=== PATIENT | male | born 1940 | race Caucasian/White ===

== ENCOUNTER 2020-04-07 16:07 | Inpatient (IN) | payer OTHER ==
[~2020-04-07] VITALS: Ht 182.9 cm; Wt 83.9 kg
--- NOTE | ~2020-04-07 | CON ---
[address] [address] CONSULTATION Name: SHANONNOHEMY Jessica Room: [address] IN M.R.#: [id number] Admission: 04/07/20 Attend Phys: Srinivas Bahena MD Discharge: Date of : 44 Report #: [id number] THIS REPORT FOR: //name// cc: Jose Antonio Short MD, Gregory MD ~ THIS REPORT FOR: //name// CC: Jose Antonio Bahena DATE OF SERVICE: 04/10/2020 HISTORY OF PRESENT ILLNESS: This is a 80-year-old male patient who was evaluated by me for memory disturbances. I talked to Dr. Collado and also talked to the nurses looking after this patient. This patient is admitted with COVID-19. He says that for 1-2 years, he is having some memory problems that are relatively mild. He was wondering whether he got dementia. Then, he got this COVID infection for which he was admitted to the hospital. This patient does have some disturbances in his blood and the patient's AST and ALT is high. His TSH is low. He did have a sed rate, but that was about 6 years ago and that was 0. REVIEW OF SYSTEMS: His 14-point review of system was carried out. He basically complained of some memory problem, which he says is longstanding. He says he may have become somewhat worse with it, but he is not markedly worse. There is some question of some speech difficulty at one time, but that is not certain. is not here, but she has confirmed that history to the nurses and I will try to reach her. According to nurses, she is emotional today because of some family dynamic, so I will probably call her tomorrow. That was his relevant 14-point review of system. PAST MEDICAL HISTORY: Positive for gallbladder. FAMILY HISTORY: Unremarkable. SOCIAL HISTORY: He does not smoke or drink alcohol. PHYSICAL EXAMINATION: Indicates: GENERAL: He is alert. He is responsive. He is oriented. NEUROLOGIC: He can tell me the name of the president and tell me the name of the hospital he is in. His cranial nerve examinations appear unremarkable. His neuromuscular examinations also appeared to be unremarkable. His reflexes are symmetrical. There is no cerebellar sign. I could not look at the patient's fundus. CARDIAC AND RESPIRATORY: Examinations appear noncontributory. He does have pneumonia, but does not appear to be markedly short of breath. His pulses are [facility] [address] [place] [address] CONSULTATION Name: NOHEMY CLAUDIO Jessica Room: [address]#: [id number] Admission: 04/07/20 Attend Phys: Srinivas Bahena MD Discharge: Date of : 44 Report #: [id number] palpable. VITAL SIGNS: His blood pressure is 110/55, his respiration is 16, pulse is 62, and temperature is 97.3. LABORATORY DATA: His white count is 4.5. He did have a CT scan during this admission and that does not show any acute problem. He does have some mild atrophy. IMPRESSION: It would appear that the patient most likely has cognitive decline, which is age-related. There was some question of speech difficulty and because of that I will get a carotid Doppler done. He denies that. It is just from the record and I suspect most likely he had encephalopathy, but even from the record, I am not certain about speech difficulty. It looks like he loses the train of thought. If that is okay, I will suggest checking a B12 and he should make an appointment after he recovers from the present episode and then we can do further workup on him as an outpatient. Thank you very much for this referral. By: 1756 Pankaj Clark MD /nt
[~2020-04-07 16:07] MED LIST: CIPROFLOXACIN500 M3; DARVOCET-N 1001 EACH PO; ERYTHROMYCIN250 MG; FLEXERIL PO; HYDROCODON-ACE1 EACH; HYDROCODON-ACE1 EACH PO; IRON325 PO; NOHOMEMEDICATIONS; NORCO 5-325 TA1 EACH PO; NORFLEX100 MG PO; PANCRELIPASE 51 EACH; PERCOCET 5-3251 EACH PO; PROTONIX40 M2 PO; REGLAN 10 MG TA10 MG; SODIUM CHLORIDE; TAMSULOSIN HCL0.4 M1 PO; TRANSDERM-SCO1 PATC1; VITAMIN D2000 UNIT PO; ZOFRAN4 MG
[2020-04-07 16:11] VITALS: BP 122/61
[2020-04-07] MEDS ORDERED: OMEPRAZOLE40 MG PO (16:15)
[2020-04-07] MEDS ORDERED: FLOMAX0.4 MG PO (16:15)
[2020-04-07] MEDS ORDERED: CIPRO500 M1 PO (16:16)
[2020-04-07 17:00] LABS: BE -2.8 mmol/L (-2 to +3); PCO2 22.5 mmHg (35.0-45.0); PO2 78.8 mmHg (75.0-100.0); pH 7.522 (7.340-7.450)
[2020-04-07 17:25] LABS: HEMATOCRIT 39.3 % (42.0-52.0); HEMOGLOBIN 13.8 gm/dL (14.0-18.0); MCH 31.4 pg (26.0-34.0); MCHC 35.2 g/dL (28.0-37.0); MCV 89.3 fL (80.0-100.0); MPV 10.4 fl. (7.2-11.1); NUCLEATED RBCS 0 /100WBC; RDW-CV 13.3 % (10.5-14.5); WBC 5.4 thou/uL (4.0-11.0)
[2020-04-07 17:33] LABS: CALCIUM 7.7 mg/dL (8.5-10.1); CREATININE 1.4 mg/dL (0.6-1.3); POTASSIUM 3.6 mmol/L (3.5-5.1)
[2020-04-07 17:35] LABS: APTT 27.1 Seconds (25.0-31.3); INR 1.1; PROTIME 10.9 Seconds (9.20-11.50)
[2020-04-07 17:37] LABS: ALBUMIN 2.9 g/dL (3.4-5.0); MAGNESIUM 1.9 mg/dL (1.8-2.4); TOTAL PROTEIN 5.9 g/dL (6.4-8.2)
[2020-04-07 17:47] LABS: ABSOLUTE BASOPHILS 0.1 thou/uL (0.0-0.2); ABSOLUTE LYMPHOCYTES 0.9 thou/uL (0.8-5.3); ABSOLUTE MONOCYTES 0.4 thou/uL (0.0-1.2); ABSOLUTE NEUTROPHILS 4.1 thou/uL (1.6-8.1); ATYPICAL LYMPHS 4 %
[2020-04-07 17:48] LABS: GIANT PLATELETS FEW; PLATELET ESTIMATE ADEQUATE
[2020-04-07 17:49] LABS: PLATELET COUNT* 260 thou/uL (150-400)
[2020-04-07 22:20] VITALS: BP 118/53
[2020-04-07] MEDS ORDERED: TYLENOL325 MG PO (23:04)
[2020-04-07 23:16] VITALS: BP 117/55
[2020-04-08 04:28] VITALS: BP 120/60
--- NOTE | 2020-04-08 07:35 | NUR ---
RECEIVED REPORT FROM ISRA RICHARD. PT TRANSFERRED TO 219. PT A&OX4. VSS. STERILE PROC TECH IN PLACE. ADMISSION HISTORY & PHYSICAL ASSESSMENT COMPLETED AND CHARTED. ORIENTED TO ROOM & CALL LIGHT. PT ON RA. PT TRACING SR/SB/BBB ON TELE. PT UPADLIB TO RESTROOM. ENHANCED PRECAUTION IN PLACE. PT DENIES PAIN. PT ABLE TO SLEEP WELL ON BED. CALL LIGHT WITHIN REACH.
[2020-04-08 08:00] VITALS: BP 109/56
[2020-04-08 09:00] LABS: URINE BILIRUBIN NEGATIVE (Negative); URINE BLOOD NEGATIVE (Negative); URINE CLARITY CLEAR; URINE COLOR YELLOW; URINE GLUCOSE-RANDOM NEGATIVE (Negative); URINE KETONES NEGATIVE (Negative); URINE LEUKOCYTES-REFLEX NEGATIVE (Negative); URINE NITRITE-REFLEX NEGATIVE (Negative); URINE PROTEIN NEGATIVE (Negative); URINE SPECIFIC GRAVITY 1.015 (1.005-1.030); URINE UROBILINOGEN 0.2 E.U./dl (0.2-1.0)
[2020-04-08 11:26] LABS: ABSOLUTE LYMPHOCYTES 0.7 thou/uL (0.8-5.3); ABSOLUTE MONOCYTES 0.4 thou/uL (0.0-1.2); ABSOLUTE NEUTROPHILS 2.6 thou/uL (1.6-8.1); BASOPHILS 0.5 %; EOSINOPHILS 0.3 %; HEMATOCRIT 37.1 % (42.0-52.0); LYMPHOCYTES 18.4 %; MCH 31.3 pg (26.0-34.0); MCV 89.5 fL (80.0-100.0); MONOCYTES 10.3 %; NUCLEATED RBCS 0 /100WBC; POLYS 70.5 %; RBC 4.15 mil/uL (4.50-6.00); RDW-CV 13.4 % (10.5-14.5); WBC 3.7 thou/uL (4.0-11.0)
[2020-04-08 11:28] LABS: PLATELET COUNT* 127 thou/uL (150-400)
[2020-04-08 11:34] LABS: CALCIUM 7.5 mg/dL (8.5-10.1); CREATININE 1.1 mg/dL (0.6-1.3); POTASSIUM 3.4 mmol/L (3.5-5.1)
--- NOTE | 2020-04-08 11:42 | EKG ---
[place] [address] ELECTROCARDIOGRAM REPORT Name: NOHEMY CLAUDIO Room: [address] ADM IN [facility].#: [id number] Admission: 04/07/20 Attend Phys: Srinivas Bahena, Discharge: Date of : 44 Date of Service: 04/07/20 1727 Report #: [id number] THIS REPORT FOR: //name// [facility] ED Test Date: 2020-04-07 Test Time: 17:27:15 Pat Name: NOHEMY CLAUDIO Department: Room: [facility] Gender: M [employer] Engineer: ROJAS : 1940 Requested By: Laurence Bell Order Number: [id number] MD: Jas Chavez Measurements Intervals [place] Rate: 63 P: 51 NC: 138 QRS: -50 QRSD: 140 T: 21 QT: 410 QTc: 420 Interpretive Statements 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
[2020-04-08 12:00] VITALS: BP 112/57
--- NOTE | 2020-04-08 15:33 | NUR ---
CM spoke with Pt via phone, Pt is covid pending. Pt is A&O. Resides at home with his . Active and independent. No DME. No hx of HH or SNF. Hx of outpt therapy at [facility] in [place]. Goal is home at md, no needs anticipated. Following.
--- NOTE | 2020-04-08 16:08 | NUR ---
PATIENT ALERT AND ORIENTED. COVID POSITIVE AND PRECAUTIONS IN PLACE. UP AD RENA. IV SL. NO COMPLAINTS OF PAIN OR ANY CONCERNS. LUNGS CLEAR AND DIMINISHED. SPOKE TO DEVYN [phone] TO GIVE UPDATE ON PATIENTS CONDITION.
[2020-04-08 16:22] VITALS: BP 118/62
[2020-04-08 16:57] LABS: ALBUMIN 2.7 g/dL (3.4-5.0); DIRECT BILIRUBIN 0.3 mg/dL (<0.1-0.3); TOTAL BILIRUBIN 0.7 mg/dL (<0.1-1.0); TOTAL PROTEIN 5.1 g/dL (6.4-8.2)
--- NOTE | 2020-04-08 18:27 | NUR ---
VITAL SIGNS ASSESSED. DENIES PAIN, SOB, NAUSEA. UP IN BED EATING DINNER. HOPING TO GO HOME SOON. 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 PATIENT UP AD RENA.
--- NOTE | 2020-04-08 21:30 | NUR ---
RECEIVED REPORT AND ASSUMED CARE OF PT AT 1930, ASSESSMENT COMPLETED AT THIS TIME. PT PLEASANT, GAIT STEADY ABOUT ROOM. NO COMPLAINTS VOICED. TELEMETRY ON SHOWING SB. WILL CONT TO MONITOR AND ASSIST NEEDED.
[2020-04-08 22:00] VITALS: BP 112/53
[2020-04-09 03:15] VITALS: BP 113/53
[2020-04-09 04:05] LABS: BE -3.4 mmol/L (-2 to +3); PCO2 29.8 mmHg (35.0-45.0); PO2 63.7 mmHg (75.0-100.0); pH 7.435 (7.340-7.450)
[2020-04-09 05:56] LABS: ABSOLUTE LYMPHOCYTES 0.9 thou/uL (0.8-5.3); ABSOLUTE MONOCYTES 0.5 thou/uL (0.0-1.2); BASOPHILS 0.5 %; HEMATOCRIT 38.3 % (42.0-52.0); HEMOGLOBIN 13.4 gm/dL (14.0-18.0); LYMPHOCYTES 19.9 %; MCH 30.8 pg (26.0-34.0); MCHC 34.9 g/dL (28.0-37.0); MCV 88.2 fL (80.0-100.0); MONOCYTES 11.4 %; MPV 9.9 fl. (7.2-11.1); NUCLEATED RBCS 0 /100WBC; PLATELET COUNT* 151 thou/uL (150-400); POLYS 67.2 %; RBC 4.34 mil/uL (4.50-6.00); RDW-CV 13.5 % (10.5-14.5); WBC 4.5 thou/uL (4.0-11.0)
[2020-04-09 06:06] LABS: AMMONIA 18 umol/L (11-32); AMYLASE 40 U/L (25-115); LIPASE 219 U/L (73-393)
[2020-04-09 06:17] LABS: ALBUMIN 2.5 g/dL (3.4-5.0); CALCIUM 8.1 mg/dL (8.5-10.1); CREATININE 1.1 mg/dL (0.6-1.3); MAGNESIUM 2.1 mg/dL (1.8-2.4); POTASSIUM 3.9 mmol/L (3.5-5.1); TOTAL BILIRUBIN 0.7 mg/dL (<0.1-1.0); TOTAL PROTEIN 5.7 g/dL (6.4-8.2)
--- NOTE | 2020-04-09 06:30 | NUR ---
SLEPT WELL TONIGHT. GAIT STEADY TO AND FROM BR. PT STATES HE IS URINATING MORE THEN HE USUALLY DOES. TELEMETRY CONT TO SHOW SB. NO CHANGE IN ASSESSMENT. HS GOALS OF REST AND SAFETY ACHIEVED. HOURLY ROUNDING OBSERVED.
[2020-04-09 08:00] VITALS: BP 136/76
[2020-04-09 12:21] VITALS: BP 114/56
--- NOTE | 2020-04-09 16:23 | NUR ---
PT REMAINS IN ISOLATION RELATED TO COVID DIAGNOSIS. Pt has rested quietly. No c/o or indication of respiratory distress. US to be done today to assess thyroid. Stable at time of this note.
[2020-04-09 16:35] VITALS: BP 111/45
[2020-04-09 16:39] VITALS: BP 111/45
[2020-04-09 20:00] VITALS: BP 124/46
--- NOTE | 2020-04-09 20:00 | NUR ---
RECEIVED REPORT AND ASSUMED CARE OF PT, ASSESSMENT COMPLETED. PT SITTING ON SIDE OF BED EATING, STATES HE EATS SLOW AND ENJOYS IT! PT ASKING QUESTIONS ABOUT DISCHARGE, QUARANTINE, AND WHEN THOUGHT HE COULD PREACH AGAIN. REASSURANCE AND ANSWERS GIVEN. TELEMETRY ON SHOWING SB. WILL CONT TO MONITOR AND ASSIST NEEDED.
[2020-04-10 00:15] VITALS: BP 136/52
[2020-04-10 04:00] VITALS: BP 131/63
--- NOTE | 2020-04-10 06:57 | NUR ---
WOKE UP DURING NIGHT AND CONFUSED NOT KNOWING WHAT HE WAS SUPPOSE TO BE DOING. REASSURANCE GIVEN AND RETURNED TO SLEEP. NO CHANGE IN ASSESSMENT. TELEMETRY CONT TO SHOW SB WITH RATE INTO 30'S WHEN SLEEPING. HS GOALS OF REST AND SAFETY ACHIEVED. HOURLY ROUNDING OBSERVED.
[2020-04-10 08:37] VITALS: BP 130/64
[2020-04-10] MEDS ORDERED: DEXAMETHASONE 22 M1 PO (10:27)
[2020-04-10] MEDS ORDERED: LEVAQUIN 750 M750 MG PO (10:28)
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
[2020-04-10 12:00] VITALS: BP 105/45
[2020-04-10 16:00] VITALS: BP 110/55
--- NOTE | 2020-04-10 18:06 | NUR ---
Pt has remained alert and oriented x 4. Cooperative with staff. No c/o or indication of respiratory distress. Delay in discharge to home related to safety issues. Documentation regarding this situation done by full charge bookkeeper. Pt resting quietly at this time
[2020-04-10 20:10] VITALS: BP 110/55
[2020-04-11] VITALS: BP 134/70
--- NOTE | 2020-04-11 06:20 | NUR ---
NO ACUTE CHANGES THROUGHOUT SHIFT. VSS. PT REPORTS PAINFUL CRAMPS IN FEET THROUGHOUT NIGHT. ALL ROUNDINGS COMPLETED, ALL NEEDS MET, FULL ASSESSMENT COMPLETED CHARTED.
--- NOTE | 2020-04-11 11:44 | NUR ---
PT RESTING IN BED WITH NO COMPLAINTS. VSS ON RA. ASSESSMENT DOCUMENTED. PT TO DC HOME TODAY. WILL CALL AHEAD TO ENSURE SAFETY OF .WILL EDUCATE PATIENT ON IMPORTANCE OF QUARANTINE. NOTHING FURTHER AT THIS TIME. CLWR.
[2020-04-11 11:46] VITALS: BP 134/70
--- NOTE | 2020-04-11 14:05 | NUR ---
CM INFORMED BY RNIN-CHARGE OF THE PT THAT THE PT WILL D/C HOME TODAY AND WILL NEED TRANSPORTATION. CM ARRANGED TRANSPORT FOR THE PT WITH [employer]. CM CALLED AND ARRANGED [facility] AND INFORMED THEM TO CALL ON ARRIVAL. CM WILL REMAIN AVAILABLE TO ASSIST AND FOLLOW NEEDED.
--- NOTE | 2020-04-11 15:04 | NUR ---
PT DCD TO HOME IN STABLE CONDITION. DC INSTRUCTIONS,PRESCRIPTIONS AND FOLLOW UP INFORATION REVIEWED WITH PT AND PT REPORTS UNDERSTANDING WITHOUT FURTHER QUESTIONS.
--- NOTE | 2020-04-12 18:35 | CON ---
[address] [address] CONSULTATION Name: NOHEMY CLAUDIO Room: [address] IN M.R.#: [id number] Admission: 04/07/20 Attend Phys: Srinivas Bahena MD Discharge: 04/11/20 Date of : 44 Report #: [id number] THIS REPORT FOR: //name// cc: Jose Antonio Short MD, Gregory MD ~ THIS REPORT FOR: //name// CC: Jose Antonio Bahena DATE OF SERVICE: 04/08/2020 REQUESTING PHYSICIAN: Dr. Collado. INDICATION FOR CONSULTATION: COVID-19. HISTORY OF PRESENT ILLNESS: This is a 80-year-old gentleman with past medical history as mentioned below. This does include a history of pancreatitis. The patient, however, does not have a longstanding cardiac or respiratory disease. He is not known to be a smoker. The patient is hard of hearing. The patient is now admitted after having had a positive COVID-19 test, which was performed as an outpatient through his primary care physician's office. The patient reports that he has been tired and fatigued for the last several days. He also does report having had a fever and chills. In addition, the patient had several episodes of diarrhea. He also had abdominal pain, which was mainly in the lower abdomen, more on the right side, initially he denied any respiratory complaints, but when I asked him directly it does appear that he has had a cough, which is new for him. He does not report any sputum production. He does not have shortness of breath. He does not have chest pain at this time. He denied having had a runny nose or sore throat. The patient does not have swelling of lower extremities or calf pain. He is not having nausea or vomiting. He did not describe urinary complaints. He has had some aches and pains; however, it is difficult to understand his response on account of him being hard of hearing. The patient is reported to be confused on initial presentation. It is not completely apparent to me as to whether the patient in fact was confused or he had difficulty understanding questions. I did have to repeat questions for him to be able to understand. The patient currently is not on supplemental oxygen. He did have a high-grade fever overnight up to 39.1 degrees Celsius. The patient currently is afebrile. PAST MEDICAL HISTORY: Pancreatitis, cholecystectomy, finger surgery, tubes in the abdomen possibly for his biliary tract. I do not have any measure of his left ventricular ejection fraction available at this time. SOCIAL HISTORY: No known history of smoking, ethanol [place] [address] CONSULTATION Name: NOHEMY CLAUDIO Room: [address] IN M.R.#: [id number] Admission: 04/07/20 Attend Phys: Srinivas Bahena MD Discharge: 04/11/20 Date of : 44 Report #: [id number] CURRENT MEDICATIONS: List in [facility] reviewed. HOME MEDICATIONS: List in [facility] also reviewed. ALLERGIES: METHYLPREDNISOLONE IS MENTIONED AN ALLERGY; HOWEVER, WHEN I ASKED THE PATIENT DIRECTLY IT APPEARS THAT HE HAD ABDOMINAL PAIN AFTER HAVING HAD A MEDROL DOSEPAK BUT THIS DOES NOT APPEAR TO BE A TRUE ALLERGY. THE PATIENT HAS ALSO HAD ABDOMINAL DISCOMFORT AFTER HAVING TAKEN HYDROCODONE WELL OXYCODONE, THIS ALSO APPEARS TO BE AN ADVERSE REACTION AND NOT AN ALLERGY. HE IS REPORTED TO HAVE HAD ADVERSE REACTION AND ALLERGY TO PENICILLINS WELL ASPIRIN WELL. FAMILY HISTORY: There is no pertinent family history known at this time. PHYSICAL EXAMINATION: GENERAL: The patient is hard of hearing, however, he is alert, awake and oriented, does not appear to be in any distress at this time. VITAL SIGNS: Has a pulse recorded as low as 46 earlier at the time of my examination around 50 with a blood pressure of 109/56. He is afebrile. He did have a low-grade fever overnight as above. Temperature was recorded in [facility] reviewed. Respiratory rate around 16 on room here. He has been saturating around 94-95%. HEENT: Head is normocephalic and atraumatic. NECK: Does not show raised JVP, asymmetry, mass or lymph nodes. CHEST: Symmetrical expansion on inspection and palpation. On auscultation, breath sounds are bilaterally equal. I do not hear any added sounds. HEART: Regular. There is no murmur. ABDOMEN: Soft and nontender. EXTREMITIES: Lower extremities show no edema, no calf tenderness. SKIN: Dry and intact. NEUROLOGICAL: Moves all extremities bilaterally equally and spontaneously with no focal deficit identified. The patient did have a CT head on presentation. He has also had a CT of the abdomen and pelvis and I just had a CT chest performed as well. The patient had a chest x-ray on initial presentation. I reviewed all of the reports. I reviewed the chest x-ray films as well as the CT chest film myself. In summary, there are extensive bilateral infiltrates consistent with COVID-19 pneumonia superimposed bacterial infection including atypical infection is not ruled out. LABORATORY DATA: The patient's CBC as well as chemistries are in [facility]. These are reviewed. Note that the patient initially did have a creatinine elevated to 1.4. He has been fluid resuscitated. Creatinine is now better at 1.1. His potassium is 3.4. He has ordered the protocol. His arterial blood gas shows a respiratory alkalosis. His PT and PTT are normal, I do not have [address] [address] CONSULTATION Name: NOHEMY CLAUDIO Jessica Room: [address] IN ..#: [id number] Admission: 04/07/20 Attend Phys: Srinivas Bahena MD Discharge: 04/11/20 Date of : 44 Report #: [id number] D-dimer available. ASSESSMENT AND PLAN: 1. COVID-19 pneumonia. The patient does have extensive infiltrates bilaterally. It does not appear to me that the patient actually has an allergy to methylprednisolone. Therefore, I would go ahead and start him on dexamethasone. I feel that the patient would also benefit from remdesivir if remdesivir is available, I understand, however, that remdesivir has limited availability and it is being priortized to the patients who are requiring supplemental oxygen. It appears likely that the patient's abdominal complaints are also related to COVID-19. However, I would like to obtain a lipase level as well. Initial LFTs are noted to be mildly elevated that suggest also following LFTs. Pulmonary infiltrates as above. The patient may certainly have a superimposed bacterial infection as well. He is on Levaquin. I agree with this therapy. We will go ahead and order more cultures and serologies as well. We will check a nasal swab for methicillin-resistant Staphylococcus aureus as well. 2. Evaluation for thromboembolic phenomena. It is noted the patient that COVID-19 potentially is a hypercoagulable state. I therefore recommend following D-dimer levels and will therefore obtain D-dimer level now and then we will follow with subsequent D-dimer levels as well. Should the patient's condition deteriorate, additional evaluation for thromboembolic phenomena may be indicated. 3. Past medical history of pancreatitis and gallbladder surgery. Thanks for this consultation. <ELECTRONICALLY SIGNED> By: Vinnie Saeed MD 04/12/20 1835 1608 [id number] Saeed MD /nt
== END 2020-04-11 15:00 | disposition home or self-care (01) | DRG 177 ==
LOC: M.ERS 16:07 → M.TBA-ER 19:17 → M.2W 19:17
PROVIDERS: Internal Medicine; Internal Medicine Critical Care Medicine; Personal Emergency Response Attendant; ADMIT Internal Medicine; ATTEND Internal Medicine
DX: U07.1 COVID-19 (principal); J12.89 Other viral pneumonia; G92 Toxic encephalopathy; D68.69 Other thrombophilia; E46 Unspecified protein-calorie malnutrition; K52.9 Noninfective gastroenteritis and colitis, unspecified; D64.9 Anemia, unspecified; N40.0 Benign prostatic hyperplasia without lower urinary tract symptoms; R79.89 Other specified abnormal findings of blood chemistry; R74.0 Nonspecific elevation of levels of transaminase and lactic acid dehydrogenase [LDH]; Z88.0 Allergy status to penicillin; Z88.8 Allergy status to other drugs, medicaments and biological substances; Z88.5 Allergy status to narcotic agent; Z90.49 Acquired absence of other specified parts of digestive tract; Z68.25 Body mass index [BMI] 25.0-25.9, adult

== ENCOUNTER → 2020-04-19 | Outpatient (CLI) | payer OTHER ==
[~2020-04-19] MED LIST changes: +CIPRO500 M1 PO; +DEXAMETHASONE 22 M1 PO; +FLOMAX0.4 MG PO; +LEVAQUIN 750 M750 MG PO; +OMEPRAZOLE40 MG PO; +TYLENOL325 MG PO
== END ==
LOC: M.RAD 12:00
PROVIDERS: ATTEND Family Medicine
DX: J18.1 Lobar pneumonia, unspecified organism (principal)